=== PATIENT | female | born 1990 | race Hispanic/Latino ===

== ENCOUNTER 2016-06-14 09:57 | Inpatient (IN) ==
[2016-06-14 10:29] LABS: URINE SOURCE VOIDED
[2016-06-14 10:34] LABS: BILIRUBIN URINE NEGATIVE (NEGATIVE); BLOOD URINE NEGATIVE (NEGATIVE); CLARITY CLEAR (CLEAR); COLOR YELLOW; GLUCOSE URINE NEGATIVE (NEGATIVE); LEUKOCYTES URINE NEGATIVE (NEGATIVE); NITRITE URINE NEGATIVE (NEGATIVE); PROTEIN URINE 1+(30 mg/dL) mg/dL (NEGATIVE); UROBILINOGEN URINE NORMAL
[2016-06-14] MEDS ORDERED: PEPCID PO ONE (13:55)
[2016-06-14] MEDS ORDERED: REGLAN PO ONE (13:55)
[2016-06-14] MEDS ORDERED: TYLENOL PO PRN (13:55)
[2016-06-14] MEDS ORDERED: PEPCID PO PRN (13:55)
[2016-06-14] MEDS ORDERED: KEFZOL 1 GM/D5W 50 ML IV PRN (13:55)
[2016-06-14] MEDS ORDERED: LR 500 ML IV ONE (13:55)
[2016-06-14] MEDS ORDERED: PEPCID IV PRN (13:55)
[2016-06-14] MEDS ORDERED: ZOFRAN IV PRN (13:55)
[2016-06-14] MEDS ORDERED: STADOL IV PRN (13:55)
[2016-06-14] MEDS ORDERED: PITOCIN 30 UNITS/LR 500 ML IV SCH (14:00)
[2016-06-14] MEDS ORDERED: SODIUM CHLORIDE 0.9% INJ SCH (14:00)
[2016-06-14] MEDS: LR 1,000 ML IV SCH ×2 (14:25→15:25)
[2016-06-14] MEDS ORDERED: MARCAINE 0.25% PF ONE (14:51)
[2016-06-14 14:52] LABS: MANUAL DIFF NEEDED? NO
[2016-06-14] MEDS ORDERED: FENTANYL-BUPIV-NS 2 MCG-0.1% 200 ML EPIDURAL ONE (15:00)
[2016-06-14 15:01] LABS: EOS# 0.02 X1000 (0.0-0.7); EOS% 0.2 % (0.0-10.0); HEMATOCRIT 41.6 % (37.0-47.0); HEMOGLOBIN 13.7 g/dL (12.0-16.0); IMM GRAN# 0.04 X1000 (0.0-0.04); IMM GRAN% 0.4 % (0.0-0.5); LYMPH# 1.23 X1000 (1.2-3.4); LYMPH% 13.1 % (20.5-51.1); MCH 28.1 PG (27-31); MCHC 32.9 g/dL (33-37); MCV 85.4 FL (81-99); MONO# 0.61 X1000 (0.11-0.59); MONO% 6.5 % (1.7-9.3); MPV 10.8 FL (7.4-10.4); NEUT% 79.8 % (42.2-75.2); PLT 291 X1000 (130-400); RBC 4.87 XMIL (4.2-5.4)
[2016-06-14] MEDS ORDERED: BENADRYL PO PRN (18:51)
[2016-06-14] MEDS ORDERED: M-M-R II VACCINE SUBQ ONE (18:51)
[2016-06-14] MEDS ORDERED: MINERAL OIL MISC PRN (18:51)
[2016-06-14] MEDS ORDERED: PITOCIN IM PRN (18:51)
[2016-06-14] MEDS ORDERED: PERCOCET-5 PO PRN (18:51)
[2016-06-14] MEDS ORDERED: CYTOTEC PO PRN (18:51)
[2016-06-14] MEDS ORDERED: PERI MEDS (DERMOPLAST/NUPERCAINAL/TUCKS) MISC PRN (18:51)
[2016-06-14] MEDS ORDERED: BENADRYL IV PRN (18:51)
[2016-06-14] MEDS ORDERED: AMBIEN PO PRN (18:51)
[2016-06-14] MEDS ORDERED: NORCO-10 PO PRN (18:51)
[2016-06-14] MEDS ORDERED: PITOCIN 30 UNITS/LR 500 ML IV ONE (18:51)
[2016-06-14] MEDS ORDERED: NORCO-5 PO PRN (18:51)
[2016-06-14] MEDS ORDERED: HYDROXYZINE IM PRN (18:51)
[2016-06-14] MEDS ORDERED: XYLOCAINE-MPF 1% INJ PRN (18:51)
[2016-06-14] MEDS ORDERED: HYDROXYZINE PO PRN (18:51)
[2016-06-14] MEDS ORDERED: BOOSTRIX VACCINE IM ONE (18:51)
[2016-06-14] MEDS ORDERED: PITOCIN 20 UNITS/LR 1,000 ML IV SCH (19:00)
--- NOTE | 2016-06-14 19:31 | OPERATIVE NOTE ---
PROCEDURE DATE: 06/14/2016 DELIVERING PHYSICIAN: Gerber Reyez MD TYPE OF DELIVERY: Spontaneous controlled vaginal delivery. ANESTHESIA: Epidural. FINDINGS: At 18:33, a 7 pound 9 ounce female infant was delivered in occiput anterior presentation. Apgars were 9 at 1 minute and 10 at 5 minutes. HISTORY OF PRESENT ILLNESS: In summary, Phyllis Menchaca is a 25-year-old, 3, para 1, at 39 weeks gestation. She has had care at our office. Her blood type is O positive. Rubella immune. Hepatitis B surface antigen, HIV, and group B strep is negative. She presented to labor and delivery this early afternoon in labor. She received an epidural for labor pain management. Membranes were ruptured revealing clear fluid. IV Pitocin was begun to augment her spontaneous contractions. She progressed through labor without signs of distress or dystocia. She became complete and began pushing. She rapidly crowned. At that point she was placed in the dorsal lithotomy position. A spontaneous controlled vaginal delivery occurred over a second- degree midline incision. Once the 's head was delivered, the oropharynx was bulb suctioned. The shoulders and the body delivered without complications. Cord was clamped and cut. The infant was handed to the nurses for further care and evaluation. Cord blood was obtained. Placenta was spontaneously delivered and was intact. There were no cervical or vaginal lacerations. The episiotomy was repaired in layers using 2-0 Vicryl suture. Blood loss approximately 150 mL. There no complications. The patient remained in the LDR recovering without difficulty.
[2016-06-14] MEDS: PERICOLACE PO SCH (22:20)
[2016-06-14] MEDS: MOTRIN PO PRN (22:23)
[2016-06-14] MEDS: PERCOCET-10 PO PRN (22:23)
[2016-06-15 06:52] LABS: HEMATOCRIT 36.2 % (37.0-47.0); HEMOGLOBIN 11.7 g/dL (12.0-16.0); MCH 27.9 PG (27-31); MCHC 32.3 g/dL (33-37); MCV 86.2 FL (81-99); MPV 11.1 FL (7.4-10.4); RBC 4.2 XMIL (4.2-5.4)
[2016-06-15] MEDS: PERCOCET-10 PO PRN (08:37)
[2016-06-15] MEDS: MOTRIN PO PRN (08:37)
[2016-06-15] MEDS ORDERED: PRECARE PO SCH (09:00)
[2016-06-15] MEDS: PERICOLACE PO SCH (21:18)
[2016-06-16 08:20] VITALS: BP 113/67
--- NOTE | 2016-06-17 07:00 | DISCHARGE SUMMARY ---
ADMISSION DATE: 06/14/2016 DISCHARGE DATE: 06/16/2016 ADMITTING DIAGNOSIS: 1. Term . 2. Active labor. DISCHARGE DIAGNOSES: 1. Term . 2. Active labor. CONDITION: Stable. DIET: As tolerated. ACTIVITY: Routine . MEDICATIONS: 1. [place] 5. 2. Motrin 800. 3. vitamins with iron. She is to follow up in [address] Reyez. Please refer to her records and delivery note. She presented in active labor at term gestation, had a vaginal delivery and has done well afterwards. Desiring discharge. PHYSICAL EXAMINATION: Vital Signs: Stable. She is afebrile. She is alert and cooperative, no distress. Neck: Supple. Lungs: Clear. Heart: Regular sinus rhythm. Abdomen: Slightly distended. Genitourinary: Uterus is firm and intact and nontender. Pelvic exam deferred. Extremities: +2 lower extremity edema. LABORATORY: Post delivery hemoglobin 11.7. We will discharge with above instructions.
== END 2016-06-16 12:45 | disposition home or self-care (01) | DRG 775 ==
LOC: P.OPLD 09:57 → P.LD 09:58 → P.OPLD 13:49 → P.WC 20:30
PROVIDERS: ADMIT Obstetrics & Gynecology; ATTEND Obstetrics & Gynecology
PROC: 10E0XZZ Delivery of Products of Conception, External Approach (ICD-10-PCS; 2016-06-14)
PROC: 0W8NXZZ Division of Female Perineum, External Approach (ICD-10-PCS; principal; 2016-06-14 18:33)
DX: O80 Encounter for full-term uncomplicated delivery (principal); Z37.0 Single live birth; Z3A.39 39 weeks gestation of pregnancy
CPT/HCPCS: 36415; 81003; 85025; 85027; 86592; J2590; J7120; S0020